=== PATIENT | male | born 1990 | race Caucasian/White ===

== ENCOUNTER 2017-10-24 09:26 | Day surgery (SDC) | payer BC, OTHER ==
[2017-10-20 09:10] VITALS: BMI 31.1
--- NOTE | 2017-10-23 21:10 | HP ---
HISTORY AND PHYSICAL CHIEF COMPLAINT: Fluid in the left middle ear space. HISTORY OF PRESENT ILLNESS: The patient is a pleasant 27-year-old male who was recently seen in my office for evaluation of a plugged sensation in his left ear. The patient was seen in my office previously and at that time was noted to have a perforation in the right ear. He denies any drainage from either ear. Clinical examination of both ears revealed no evidence of a perforation in the right ear and examination of the left ear revealed that the left tympanic membrane was dull with evidence of fluid in the left middle ear space. This was confirmed with a tympanogram which was also flat suggesting fluid in the left middle ear space. There was no evidence of a perforation in the left tympanic membrane. It was recommended that the patient undergo a left myringotomy with insertion of a ventilation tube under either general anesthesia or sedation, depending upon the anesthesia department's preference. PAST MEDICAL HISTORY: Past medical history reveals that the patient has no known allergies to medications. He is a nonsmoker. There is no history of asthma, diabetes mellitus or hypertension. He is not currently on any medications. REVIEW OF SYSTEMS: The review of systems is noncontributory. PHYSICAL EXAMINATION: This patient is a 27-year-old male who is alert and cooperative. HEENT examination: Patient is normocephalic. Right tympanic membrane is normal. Left tympanic membrane is dull with fluid in the left middle ear space. Pupils equal, round, and reactive to light and accommodation. Extraocular movements are within normal limits. Intranasal examination reveals moderate septal deviation with compensatory hypertrophied inferior turbinates and a moderate amount of mucus on the mucous membranes and draining down the posterior pharynx. Examination of oropharynx, cranial nerves 2-12, remainder of the head and neck exam are within normal limits. Chest/cardiovascular: Both lung plaza are clear to percussion and auscultation. The patient is in regular sinus rhythm. S1 and S2 are present without evidence of any murmurs, S3s or S4. Peripheral pulses are bilaterally symmetrical. ABDOMEN: There is no evidence the masses, megaly or tenderness. ABDOMEN: Soft. Skin is unremarkable. Musculoskeletal and neurological are within normal limits. Rectal examination exam is deferred at this time because the patient has this procedure done on a regular basis at his family physician's office. The remainder of physical examination is essentially unremarkable. PREVIOUS SURGERIES: Include bilateral myringotomy, insertion of ventilation tubes x3, bunionectomy, and appendectomy. IMPRESSION: Chronic left serous otitis media. PLAN: The patient is scheduled to undergo a left myringotomy with insertion of ventilation tube under either IV sedation or general anesthesia depending upon the anesthesia department's preference in the a.m. Attention RNs in the pre-surgical area: I have not ordered any pre-surgical prophylactic antibiotics for this patient. If the pharmacy department sends any pre- surgical prophylactic antibiotics to the pre-surgical area for this patient, that order should be cancelled and the medication should be returned to the pharmacy department. Make please make sure that the patient's account is credited appropriately. I have discussed the risks, benefits and alternative therapies for the above-mentioned procedure and for both sedation/analgesia as well as necessary blood product administration, if indicated, as they pertain to this patient. The patient has indicated his or her understanding and acceptance of the risks and procedures discussed. MMSHELBYL / IJN: [id number] /
[~2017-10-24 09:26] MED LIST: DEXAMETHASONE SOD PHOSPHATE 10 MG/ML 1 ML VIAL IV ONE; LACTATED RINGERS 1,000 ML IV SCH; LIDOCAINE 1% 20 ML VIAL (10MG/ML) FOR IV START INTRADERMA PRN; MORPHINE SULFATE 2 MG/ML SYRINGE IV PRN; ONDANSETRON ODT 4 MG TAB PO ONE; Pre Op ABX Message 1 EACH MISC MISCELLANE ONE; SCOPOLAMINE 1.5MG/72HR PATCH TRANSDERM ONE
[2017-10-24] MEDS ORDERED: ONDANSETRON 4 MG/2 ML VIAL IVP ONE (10:58)
[2017-10-24 11:04] LABS: Glucose,Whole Blood 74 mg/dL (75-99)
[2017-10-24] MEDS ORDERED: OFLOXACIN 0.3% OPHTH DROPS 5 ML BOTTLE BOTH EARS ONE (11:08)
[2017-10-24] MEDS ORDERED: fentaNYL (PF) 50 MCG/ML 2 ML AMP ONE (11:12)
[2017-10-24] MEDS ORDERED: LIDOCAINE 1% INJ 10MG/ML (20 ML MDV) ONE (11:12)
[2017-10-24] MEDS ORDERED: PROPOFOL 10 MG/ML 20 ML VIAL IV ONE (11:12)
[2017-10-24] MEDS ORDERED: MIDAZOLAM 2 MG/2 ML VIAL ONE (11:12)
[2017-10-24 12:03] VITALS: TEMP 96.9
[2017-10-24 13:12] VITALS: BP 121/80; PULSE 78; RESP 18
--- NOTE | 2017-10-24 18:41 | OP ---
OPERATIVE REPORT DATE OF SURGERY: 10/24/2017 PREOPERATIVE DIAGNOSIS: Chronic left serous otitis media. POSTOPERATIVE DIAGNOSIS: Atelectatic left tympanic membrane. ANESTHESIA: Anesthesia was general. OPERATIVE PROCEDURE: Microscopic inspection of the right and left tympanic membrane under general anesthesia with finding of a severely atelectatic left tympanic membrane, totally collapsed left middle ear space. SURGEON: Dr. Mar. COMPLICATIONS: None. OPERATIVE PROCEDURE: The patient is placed operating table in supine position and after uneventful induction and LMA intubation, satisfactory general anesthesia was obtained. Next the patient's left ear was draped in usual customary fashion. Following this, using the Zeiss operating microscope and a #3 aural speculum, the left external auditory canal was cleansed of all wax and debris. Initial observation revealed that the patient had an old healed perforation of the left tympanic membrane. It appears that the tympanic membrane has completely collapsed onto the medial wall of the left middle ear space. The middle ear ossicles appear to be intact, although the handle of the malleus appears to be retracted onto the promontory of the middle ear space. Further inspection reveals that the tympanic membrane actually healed and it appears that the eustachian tube orifice is visible and some of the tympanic membrane tissue may have actually collapsed into the left Eustachian tube. I refrained from probing this area at this time. Because no fluid was found, the scheduled procedure was aborted, that is an insertion of a ventilation tube, and it was felt that this patient would need to undergo a complete tympanoplasty of the left ear in the future. At this point, the procedure was terminated. There were no intraoperative complications. The patient tolerated procedure well and was returned to the recovery room in satisfactory condition. MMODL / IJN: [id number] /
== END 2017-10-24 13:14 | disposition home or self-care (01) ==
LOC: OR 09:26
PROVIDERS: ATTEND Otolaryngology
DX: H73.892 Other specified disorders of tympanic membrane, left ear (principal); H65.22 Chronic serous otitis media, left ear; G47.33 Obstructive sleep apnea (adult) (pediatric); H91.90 Unspecified hearing loss, unspecified ear; K21.9 Gastro-esophageal reflux disease without esophagitis
CPT/HCPCS: 92502; J2250; J2405; J2001; J3010; J2704

== ENCOUNTER → 2017-10-25 | Outpatient (CLI) | payer BC ==
--- NOTE | 2017-10-25 08:14 | CT ---
EXAMINATION TYPE: CT sinus wo con DATE OF EXAM: 10/25/2017 COMPARISON: NONE HISTORY: acute sinusitis CT DLP: [address] of the paranasal sinuses was performed in the axial and coronal planes. Bone and soft tissue settings are submitted. The paranasal sinuses demonstrate normal aeration and development. Mild mucosal thickening left maxillary sinus. No air-fluid levels detected. The osteal meatal units are patent bilaterally. The nasal septum is midline. No bony destructive changes are seen within the field of view. IMPRESSION: Mild chronic maxillary sinusitis.
--- NOTE | 2017-10-25 10:23 | FL ---
EXAMINATION: Cervical and Thoracic Esophagram DATE OF EXAM: 10/25/2017 CLINICAL INDICATION: 27-year-old male acute sinusitis, dysphasia for 3 years with heartburn and reflu x. Patient with history of foreign body stuck in the throat which required a visit to the hospital wi muscle relaxers to allow passage. COMPARISON: Total Fluoroscopy Time: 1 minute 54 seconds Total images: 43 FINDINGS: The swallowing mechanism is normal and hypopharyngeal anatomy is preserved. The cervical and thoracic portions have a normal course and caliber and normal motility. The mucosa is normal and no persistent filling defect is encountered. There is a small sliding hiatal hernia. Trace gastroesophageal reflux is noted with repeated Valsalva maneuver. IMPRESSION: 1. Small sliding hiatal hernia. 2. Only trace gastroesophageal reflux is seen during the course of the exam. This does not exclude th e possibility of more significant reflux in this patient. 3. Otherwise, no specific abnormality seen.
== END | disposition home or self-care (01) ==
LOC: RADCTMAIN 07:53
PROVIDERS: ATTEND Otolaryngology
DX: J32.0 Chronic maxillary sinusitis (principal); K44.9 Diaphragmatic hernia without obstruction or gangrene
CPT/HCPCS: 70486; 74220

== ENCOUNTER 2021-05-27 20:27 | Emergency (ER) | payer BC ==
[2021-05-27 21:32] VITALS: BP 138/82; TEMP 97.6
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
[2021-05-27] MEDS ORDERED: ACET/COD 300 MG/30 MG STARTER PACK 6 TAB BTL PO STA (22:45)
[2021-05-27 23:01] VITALS: PULSE 78; RESP 16
== END 2021-05-27 23:00 | disposition home or self-care (01) ==
LOC: EC 20:27
DX: S20.211A Contusion of right front wall of thorax, initial encounter (principal); K21.9 Gastro-esophageal reflux disease without esophagitis; Z90.49 Acquired absence of other specified parts of digestive tract; W01.0XXA Fall on same level from slipping, tripping and stumbling without subsequent striking against object, initial encounter
CPT/HCPCS: 99283

== ENCOUNTER 2024-10-24 21:29 | Emergency (ER) | payer BC ==
--- NOTE | 2024-10-24 22:06 | ED ---
ENT HPI - General Chief complaint: ENT Stated complaint: Object in throat Time Seen by Provider: 10/24/24 21:55 Source: patient, RN notes reviewed, old records reviewed Mode of arrival: ambulatory Limitations: no limitations - History of Present Illness Initial comments: This is a 34-year-old male to ER for evaluation of cough and nausea vomiting concern for foreign body. Patient was eating steak tonight did have perform Heimlich did puke after this event. Patient also had some blood in his puke the last time he threw up. Denies any chest pain or shortness of breath currently. No history of prior foreign body esophagus, patient is able to eat and drink MD complaint: difficulty swallowing, foreign body, other (Hematemesis) -: hour(s) Severity: mild Consistency: constant Improves with: none Worsens with: swallowing Associated Symptoms: pain with swallowing - Related Data Home Medications Medication Instructions Recorded Confirmed Ibuprofen [Motrin Ib] 800 mg PO Q8H PRN 03/11/23 03/11/23 Allergies Allergy/AdvReac Type Severity Reaction Status Date / Time No Known Allergies Allergy Verified 10/24/24 21:34 Review of Systems ROS Statement: Those systems with pertinent positive or pertinent negative responses have been documented in the HPI. ROS Other: All systems not noted in ROS Statement are negative. Past Medical History Past Medical History: GERD/Reflux, Hearing Disorder / Deafness, Sleep Apnea/CPAP/BIPAP Additional Past Medical History / Comment(s): No CPAP use. 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 Past Anesthesia/Blood Transfusion Reactions: No Reported Reaction Past Psychological History: No Psychological Hx Reported Smoking Status: Never smoker Past Alcohol Use History: Rare Past Drug Use History: None Reported - Past Family History Mother Family Medical History: No Reported History Father Family Medical History: Congestive Heart Failure (CHF) Additional Family Medical History / Comment(s): . Brother(s) Family Medical History: Diabetes Mellitus, Renal Disease Additional Family Medical History / Comment(s): due to kidney failure. General Exam Limitations: no limitations General appearance: alert, in no apparent distress Head exam: Present: atraumatic, normocephalic, normal inspection Eye exam: Present: normal appearance, PERRL, EOMI. Absent: scleral icterus, conjunctival injection, periorbital swelling ENT exam: Present: normal exam, mucous membranes moist Neck exam: Present: normal inspection. Absent: tenderness, meningismus, lymphadenopathy Respiratory exam: Present: normal lung sounds bilaterally. Absent: respiratory distress, wheezes, rales, rhonchi, stridor Cardiovascular Exam: Present: regular rate, normal rhythm, normal heart sounds. Absent: systolic murmur, diastolic murmur, rubs, gallop, clicks GI/Abdominal exam: Present: soft, normal bowel sounds. Absent: distended, tenderness, guarding, rebound, rigid Extremities exam: Present: normal inspection, full ROM, normal capillary refill. Absent: tenderness, pedal edema, joint swelling, calf tenderness Back exam: Present: normal inspection Neurological exam: Present: alert, oriented X3, CN II-XII intact Psychiatric exam: Present: normal affect, normal mood Skin exam: Present: warm, dry, intact, normal color. Absent: rash Course Vital Signs 10/24/24 10/24/24 21:30 22:57 Temperature 97.8 F 97.7 F Pulse Rate 100 89 Respiratory 18 22 Rate Blood Pressure 121/87 124/79 O2 Sat by Pulse 97 100 Oximetry - Reevaluation(s) Reevaluation #1: 10/24/24 22:45 Medical records reviewed Reevaluation #2: 10/24/24 22:46 Patient is able to drink water and keep down water here in the emergency department Symptoms improved after medication Reevaluation #3: 10/24/24 22:46 Patient informed of results questions answered Reevaluation #4: Was pt. sent in by a medical professional or institution (, PA, STR[employer]PERVISOR, urgent care, hospital, or half-way...) When possible be specific @ -no Did you speak to anyone other than the patient for history (EMS, parent, family, police, friend...)? What history was obtained from this source @ -no Did you review nursing and triage notes (agree or disagree)? Why? @ -agree Are old charts reviewed (outside hosp., previous admission, EMS record, old EKG, old radiological studies, urgent care reports/EKG's, half-way records)? Report findings @ -yes Differential Diagnosis (chest pain, altered mental status, abdominal pain women, abdominal pain men, vaginal bleeding, weakness, fever, dyspnea, syncope, headache, dizziness, GI bleed, back pain, seizure, CVA, palpatations, mental health, musculoskeletal)? @ -prior EKG interpreted by me (3pts min.). @ -no X-rays interpreted by me (1pt min.). @ -yes negative for acute disease CT interpreted by me (1pt min.). @ -no U/S interpreted by me (1pt. min.). @ -no What testing was considered but not performed or refused? (CT, X-rays, U/S, labs)? Why? @ -none What meds were considered but not given or refused? Why? @ -none Did you discuss the management of the patient with other professionals (professionals i.e. , PA, [employer] SUPERVISOR, lab, RT, psych nurse, social services counselor, intellectual property lawyer, teacher, chief sustainability officer, vocational case manager)? Give summary @ -no Was smoking cessation discussed for >3mins.? @ -no Was critical care preformed (if so, how long)? @ -no Were there social determinants of health that impacted care today? How? (Homelessness, low income, unemployed, alcoholism, drug addiction, transportation, low edu. Level, literacy, decrease access to med. care, retirement, rehab)? @ -none Was there de-escalation of care discussed even if they declined (Discuss DNR or withdrawal of care, Hospice)? DNR status @ -no What co-morbidities impacted this encounter? (DM, HTN, Smoking, COPD, CAD, Cancer, CVA, ARF, Chemo, Hep., AIDS, mental health diagnosis, sleep apnea, morbid obesity)? @ -none Was patient admitted / discharged? Hospital course, mention meds given and route, prescriptions, significant lab abnormalities, going to OR and other pertinent info. @ - 34 male to the ER for evaluation of possible esophageal foreign body. Patient has resolved foreign body here in the ER symptoms are improved no distress and can be discharged home mild hematemesis that does seem resolved Discharge esophageal foreign body Undiagnosed new problem with uncertain prognosis? @ -no Drug Therapy requiring intensive monitoring for toxicity (Heparin, Nitro, Insulin, Cardizem)? @ -no Were any procedures done? @ -no Diagnosis/symptom? @ - Acute, or Chronic, or Acute on Chronic? @ -Acute Uncomplicated (without systemic symptoms) or Complicated (systemic symptoms)? @ -Complicated Side effects of treatment? @ -no Exacerbation, Progression, or Severe Exacerbation? @ -exacerbation Poses a threat to life or bodily function? How? (Chest pain, [place], OR, pneumonia, PE, COPD, DKA, ARF, appy, cholecystitis, CVA, Diverticulitis, Homicidal, Suicidal, threat to staff... and all critical care pts) @ -no Medical Decision Making - Medical Decision Making 34 male to the ER for evaluation of possible esophageal foreign body. Patient has resolved foreign body here in the ER symptoms are improved no distress and can be discharged home mild hematemesis that does seem resolved - Radiology Data Radiology results: report reviewed (CXR is negative for acute disease), image reviewed Disposition Clinical Impression: Esophagus, foreign body, Hematemesis Disposition: HOME SELF-CARE Condition: Good Instructions (If sedation given, give patient instructions): Esophageal Foreign Body (ED), Hematemesis (ED) Is patient prescribed a controlled substance at d/c from ED?: No Referrals: Jn Pulido DO [Primary Care Provider] - 1-2 days Time of Disposition: 22:45
[2024-10-24] MEDS: LIDOCAINE VISCOUS 2% 15 ML CUP PO STA (22:37)
[2024-10-24] MEDS: MAG HYDROX/AL HYDROX/SIMETH 30 ML CUP PO STA (22:37)
[2024-10-24] MEDS: ONDANSETRON ODT 4 MG TAB PO STA (22:38)
[2024-10-24 22:58] VITALS: BP 124/79; PULSE 89; RESP 22; TEMP 97.7
--- NOTE | 2024-10-25 00:12 | XR ---
EXAM: XR Chest, 1 View CLINICAL HISTORY: ITS.REASON XR Reason: FB TECHNIQUE: Frontal view of the chest. COMPARISON: No relevant prior studies available. FINDINGS: Lungs: Unremarkable. No consolidation. Pleural space: Unremarkable. No pneumothorax. Heart: Unremarkable. No cardiomegaly. Mediastinum: Unremarkable. Bones/joints: Unremarkable. IMPRESSION: No consolidation.
== END 2024-10-24 22:59 | disposition home or self-care (01) ==
LOC: EC 21:29
DX: T18.108A Unspecified foreign body in esophagus causing other injury, initial encounter (principal); K92.0 Hematemesis; W44.9XXA Unspecified foreign body entering into or through a natural orifice, initial encounter
CPT/HCPCS: 71045; 99283